=== PATIENT | male | born 1970 | race Two or more races ===

== ENCOUNTER 2021-12-21 17:24 | Emergency (ER) | payer BC, SELFPAY ==
--- NOTE | ~2021-12-21 | XR_ITS ---
EXAMINATION: XR chest 2V CLINICAL INFORMATION: Reason for Exam Cough, fever COMPARISON: None TECHNIQUE: 2 views of the chest XR/XR chest 2V FINDINGS/IMPRESSION: Retrocardiac opacity best appreciated on the lateral view no definite clear PA correlate, which may reflect bronchopneumonia. Recommend follow-up PA and lateral radiographs to ensure resolution. No pneumothorax. No pleural effusion. Normal cardiomediastinal silhouette.
--- NOTE | ~2021-12-21 | CT_ITS ---
EXAMINATION: CT ANGIOGRAM OF THE CHEST WITH AND WITHOUT CONTRAST (CT PULMONARY ANGIOGRAM FOR PE) CLINICAL INFORMATION: Reason for Exam sob, perc +,r/o pe and pna COMPARISON: None TECHNIQUE: Prior to contrast administration, noncontrast localization images were obtained. Subsequently, multidetector volumetric imaging was performed from the thoracic inlet to below the diaphragms following the administration of 80 mL Omnipaque 350 intravenous contrast. No contrast reaction reported Sagittal, coronal, and MIP oblique sagittal reformatted images were obtained on the CT workstation, uploaded to PACS, and reviewed. This CT examination was performed using dose optimization techniques as appropriate, variously including the following: *Automated exposure control *Adjustment of mA and/or kV according to patient size (this includes techniques or standardized protocols for targeted exams where dose is matched to indication/reason for exam; i.e. extremities or head) *Use of iterative reconstruction technique Total exam dose-length product 409 mGy-cm FINDINGS: QUALITY OF STUDY/CONTRAST BOLUS: Satisfactory. PULMONARY ARTERIES: No central or segmental pulmonary emboli. THORACIC AORTA: No aneurysm or dissection. LUNG: The lungs are well-expanded and clear of acute pneumonic process. No pulmonary nodule, mass or consolidation seen. PLEURA: No pleural effusion or pneumothorax. MEDIASTINUM: Normal heart size. No pericardial effusion. No hilar or mediastinal lymphadenopathy. No evidence of septal bowing or right heart strain. CHEST WALL/AXILLA: No axillary or internal mammary lymphadenopathy. OSSEOUS STRUCTURES: No acute or suspicious osseous abnormality. UPPER ABDOMEN: Unremarkable. No reflux of contrast into the hepatic veins to suggest elevated right heart pressures. CT/CT angio chest PE protocol IMPRESSION: No evidence of PE. No evidence of aortic dissection or aneurysm. VTE: negative
[2021-12-21 18:01] VITALS: BP 90/43; PULSE 127; RESP 20; TEMP 38.9; O2SAT 95; BMI 48.4
[2021-12-21] MEDS: Ibuprofen 600 MG TABLET PO (18:13)
[2021-12-21 18:22] LABS: MANUAL DIFF FLAG NO
[2021-12-21 18:27] LABS: Basophils Absolute Auto 0.1 X10*3/uL (0.0-0.2); Basophils Percent Auto 0.6 % (0-2); Eosinophils Absolute Auto 0.1 X10*3/uL (0.0-0.4); Eosinophils Percent Auto 0.9 % (0-4); Hematocrit 42.2 % (42.0-52.0); Hemoglobin 13.9 g/dl (14.0-18.0); Imm Gran Abs Auto 0.02 X10*3/uL (0.00-0.03); Imm Gran Pct Auto 0.3 % (0.0-0.4); Lymphocytes Absolute Auto 0.4 X10*3/uL (1.2-4.9); Mean Corpuscular HGB Conc 32.9 g/dl (31.0-36.0); Mean Corpuscular Volume 82.1 fL (80.0-98.0); Mean Platelet Volume 10.3 fL (9.4-12.4); Monocytes Absolute Auto 0.7 X10*3/uL (0.1-1.2); Monocytes Percent Auto 8.4 % (2-11); Neutrophils Absolute Auto 6.6 x10*3/uL (2.0-8.3); Neutrophils Percent Auto 84.8 % (45-73); Platelet Count 204 X10*3/uL (160-400); Red Blood Count 5.14 X10*6/uL (4.60-5.80); Red Cell Distribution Width 15.2 % (11.0-16.0); White Blood Count 7.8 X10*3/uL (4.8-10.8)
[2021-12-21 18:40] LABS: Anion Gap 14 (12-20); Blood Urea Nitrogen 18 mg/dL (9-16); Carbon Dioxide 28 mmol/L (22-29); Chloride 99 mmol/L (96-108); Creatinine Clr Calc Pharmacy 72.1; Estimated Glomerular Filt Rate 55; Glucose Random 110 mg/dL (60-115); Lactic Acid 2.3 mmol/L (0.5-2.0); Potassium 3.9 mmol/L (3.3-5.1); Sodium 137 mmol/L (135-145)
[2021-12-21 18:41] LABS: COVID-19 Test Negative (Negative); IDNOW Serial# 16C4AD1C
[2021-12-21 18:42] LABS: Influenza A Positive (Negative); Influenza B2 Negative (Negative)
[2021-12-21 20:19] LABS: Reflex Lactate? Lactic Acid Added
[2021-12-21] MEDS: cefTRIAXone sodium 1 GM in 0.9 % Sodium Chloride 50 ML IV (20:27)
--- NOTE | 2021-12-21 20:45 | PC.NURSE ---
THIS US SET UP TIMER FOR [id number]
[2021-12-21 20:47] VITALS: BP 116/78; PULSE 79; RESP 20; O2SAT 96
[2021-12-21 20:55] VITALS: TEMP 36.7
[2021-12-21 20:57] LABS: ~Lactic Acid-LAB USE ONLY 0.7 mmol/L (0.5-2.0)
[2021-12-21] MEDS: iohexoL 350 MG/ML 100 ML INFUS..BTL IV (21:14)
[2021-12-21 21:22] VITALS: BP 108/73; PULSE 77; RESP 18; TEMP 36.7; O2SAT 98
[2021-12-21 21:34] VITALS: BP 122/71; PULSE 55; RESP 14; O2SAT 96
[2021-12-21 22:22] VITALS: BP 122/72; PULSE 78; RESP 17; TEMP 36.4; O2SAT 100
--- NOTE | 2021-12-21 22:22 | ED.GENADULT ---
HPI - General Adult General Chief complaint: Upper Respiratory Symptoms Stated complaint: bodyaches,fever Time Seen by Provider: 12/21/21 19:32 Source: patient Mode of arrival: ambulatory Limitations: no limitations History of Present Illness HPI narrative: This is a 51-year-old male pmhx htn presenting to the emergency department with complaints of fever, cough, body aches all of which started last night after work suddenly and have been progressively worsening. He tells me that he has been feeling weak, warm and his joints are hurting. He has had subjective fevers and chills. He also reports some shortness of breath with exertion. And shortness of breath when he is coughing. He denies any sick contacts. He has his COVID vaccination x3. However he is not vaccinated against the flu. He denies chest pain, headache, dizziness, vision changes, nausea, vomiting, abdominal pain. Onset (ago): day(s) (2) Severity: moderate Pain Consistency: constant Relieving factors: none Exacerbating factors: none Associated symptoms: denies other symptoms Treatments prior to arrival: none Related Data Previous Rx's Medication Instructions Recorded oseltamivir 75 mg capsule (Tamiflu) 75 mg PO BID 5 Days #10 cap 12/21/21 Allergies Allergy/AdvReac Type Severity Reaction Status Date / Time No Known Allergies Allergy Verified 12/21/21 18:00 Review of Systems Review of Systems: Constitutional : No Weight loss, + Fever, + Chills, + Fatigue, + Malaise ENT/Mouth : No sore throat, No Rhinorrhea Eyes: No Eye Pain, No Swelling, No Redness Cardiovascular : No Chest Pain, No SOB, + Dyspnea on Exertion, No Orthopnea, No Edema, No Palpitations Respiratory : + Cough, + Sputum, No Wheezing Gastrointestinal : No Nausea, No Vomiting, No Diarrhea, No Constipation, No abdominal Pain, No Hematochezia, No Melena Genitourinary : No Dysuria, No Urinary Frequency, No Hematuria, Musculoskeletal : No joint pain, No Myalgias, No Joint Swelling Skin : No Skin Lesions, No rash Neuro : No Weakness, No Numbness, No Dizziness, No Headache Psych : No Anxiety/Panic, No Depression All other systems reviewed and are negative Yes all other systems are reviewed and are negative PMFSH Past Medical History Attestation statement: The following information was validated with the patient. Source: old records reviewed and nursing notes reviewed Medical History (Updated 12/21/21 @ 22:30 by DEDRICK Fam) HTN (hypertension) Sleep apnea Social History Social History Advance Directives: No Advance Directives Information Provided: No Physical Exam ED Vital Signs: Vital Signs - 24 hr 12/21/21 18:01 12/21/21 20:47 12/21/21 20:55 Temperature 102.1 F H 98.0 F Pulse Rate 127 H 79 Respiratory Rate 20 20 Blood Pressure 90/43 L 116/78 Pulse Oximetry 95 96 12/21/21 21:22 12/21/21 21:34 Temperature 98.1 F Pulse Rate 77 55 Respiratory Rate 18 14 Blood Pressure 108/73 122/71 Pulse Oximetry 98 96 BMI result Body Mass Index 48.4 Vital signs significant for hypotension, fever likely secondary to viral infection. Appearance: Alert.? Oriented X3.? No acute distress.? Head: Normocephalic, atraumatic, no step-offs or deformities Eyes: Pupils equal, round and reactive to light.? ENT: Pharynx normal.? Neck: Normal inspection.? Neck supple.? CVS: Normal heart rate and rhythm.? Pulses normal.? Respiratory: No respiratory distress.? Breath sounds normal.? Abdomen: Soft and nontender.? Skin: Skin warm and dry.? Normal skin color.? Normal skin turgor.? Extremities: No lower extremity edema.? No calf ttp, negative Kevin bilaterally 5/5 strength to bilateral upper and lower extremities Back: No midline tenderness, no C-spine tenderness, full range of motion, no CVA tenderness bilaterally Neuro: Oriented X 3.? No motor deficit.? No sensory deficit. CN 2-12 intact Course Reevaluation(s) Reevaluation #1: CBC within normal limits. No acute electrolyte abnormalities requiring intervention. Lactic acid initially 2.3 likely secondary to dehydration, repeat lactic acid 0.7. Total creatinine kinase 285, not consistent with rhabdo. Patient is noted to be positive for influenza type A, consistent with patient's symptoms Chest x-ray shows and retrocardiac opacity best appreciated on the lateral view. Which could reflect bronchopneumonia. There is no pneumothorax, no pleural effusion. To better clarify this and due to patient shortness of breath a CTA was done to rule out pneumonia and pulmonary embolism. CT with no acute findings. CTA with no evidence of dissection or aneurysm. VTE negative. No evidence of PE. No evidence of pneumonia. At this time patient will be discharged home with Tamiflu. Gave patient worrisome signs and symptoms and told him to return if any of these arise. Outlined he is on his discharge. Comfortable discharge home. Upon discharge patient appears well appears to be in no acute distress. Vital signs are stable. Improved blood pressure. He denies shortness of breath and chest pain upon discharge. Patient tells me he never had chest pain. Comfortable discharge Time: 22:28 Medical Decision Making MDM Narrative Medical decision making narrative: 2003 51 yo m presents w/ flu like sx X2 days. Physical examination benign. Patient was noted to be hypotensive and febrile likely secondary to a viral infection. Due to patient's presentation, vitals and history I called a sepsis alert upon his arrival and initiated fluids. And antibiotics. Plan at this time blood cultures, lactic, chest x-ray, labs, influenza and COVID Medical Records Medical records reviewed: Yes I reviewed the patient's medical records. Lab Data Lab results reviewed: Yes I reviewed the patient's lab results. Result diagrams: 12/21/21 18:15 12/21/21 18:15 Labs: Lab Results 12/21/21 12/21/21 12/21/21 Range/Units 18:15 18:15 18:15 WBC 7.8 (4.8-10.8) X10*3/uL RBC 5.14 (4.60-5.80) X10*6/uL Hgb 13.9 L (14.0-18.0) g/dl Hct 42.2 (42.0-52.0) % MCV 82.1 (80.0-98.0) fL MCH 27.0 (27.0-33.0) pg MCHC 32.9 (31.0-36.0) g/dl RDW 15.2 (11.0-16.0) % Plt Count 204 (160-400) X10*3/uL MPV 10.3 (9.4-12.4) fL Immature Gran % (Auto) 0.3 (0.0-0.4) % Neut % (Auto) 84.8 H (45-73) % Lymph % (Auto) 5.0 L (20-40) % O'Brien % (Auto) 8.4 (2-11) % Eos % (Auto) 0.9 (0-4) % Baso % (Auto) 0.6 (0-2) % Lymph # (Auto) 0.4 L (1.2-4.9) X10*3/uL O'Brien # (Auto) 0.7 (0.1-1.2) X10*3/uL Eos # (Auto) 0.1 (0.0-0.4) X10*3/uL Baso # (Auto) 0.1 (0.0-0.2) X10*3/uL Abs Immat Gran (auto) 0.02 (0.00-0.03) X10*3/uL Absolute Neuts (auto) 6.6 (2.0-8.3) x10*3/uL Absolute Nucleated RBC 0.000 (0.0-0.012) X10*3/uL Nucleated RBC % (auto) 0.0 (0.0-0.2) /100WBC Sodium (135-145) mmol/L Potassium (3.3-5.1) mmol/L Chloride (96-108) mmol/L Carbon Dioxide (22-29) mmol/L Anion Gap (12-20) BUN (9-16) mg/dL Creatinine (0.5-1.4) mg/dL Estim Creat Clear Calc Estimated GFR Random Glucose (60-115) mg/dL Lactic Acid (0.5-2.0) mmol/L Lactic Acid F/U @ 2Hr (0.5-2.0) mmol/L Calcium (8.4-10.2) mg/dL Total Creatine Kinase (38-174) U/L COVID-19 (LIZ) Negative (Negative) COVID-19 Clin Com See Note Influenza Type A (VIVIAN) Positive A (Negative) Influenza Type B (VIVIAN) Negative (Negative) Influenza A & B Note See Note 12/21/21 12/21/21 12/21/21 Range/Units 18:15 18:15 20:43 WBC (4.8-10.8) X10*3/uL RBC (4.60-5.80) X10*6/uL Hgb (14.0-18.0) g/dl Hct (42.0-52.0) % MCV (80.0-98.0) fL MCH (27.0-33.0) pg MCHC (31.0-36.0) g/dl RDW (11.0-16.0) % Plt Count (160-400) X10*3/uL MPV (9.4-12.4) fL Immature Gran % (Auto) (0.0-0.4) % Neut % (Auto) (45-73) % Lymph % (Auto) (20-40) % O'Brien % (Auto) (2-11) % Eos % (Auto) (0-4) % Baso % (Auto) (0-2) % Lymph # (Auto) (1.2-4.9) X10*3/uL [place]Brien # (Auto) (0.1-1.2) X10*3/uL Eos # (Auto) (0.0-0.4) X10*3/uL Baso # (Auto) (0.0-0.2) X10*3/uL Abs Immat Gran (auto) (0.00-0.03) X10*3/uL Absolute Neuts (auto) (2.0-8.3) x10*3/uL Absolute Nucleated RBC (0.0-0.012) X10*3/uL Nucleated RBC % (auto) (0.0-0.2) /100WBC Sodium 137 (135-145) mmol/L Potassium 3.9 (3.3-5.1) mmol/L Chloride 99 (96-108) mmol/L Carbon Dioxide 28 (22-29) mmol/L Anion Gap 14 (12-20) BUN 18 H (9-16) mg/dL Creatinine 1.37 (0.5-1.4) mg/dL Estim Creat Clear Calc 72.1 Estimated GFR 55 Random Glucose 110 (60-115) mg/dL Lactic Acid 2.3 H* (0.5-2.0) mmol/L Lactic Acid F/U @ 2Hr 0.7 (0.5-2.0) mmol/L Calcium 9.0 (8.4-10.2) mg/dL Total Creatine Kinase 285 H (38-174) U/L COVID-19 (LIZ) (Negative) COVID-19 Clin Com Influenza Type A (VIVIAN) (Negative) Influenza Type B (VIVIAN) (Negative) Influenza A & B Note Critical Care Time Critical Care Time Critical Care Time: No Discharge Plan Discharge Clinical Impression: Influenza Patient Disposition: Home, Self-Care Instructions: Influenza (ED), Flu Shot (Vaccine) for Adults (ED) Additional Instructions: Take your medications as prescribed. If you were prescribed antibiotics today, it is important that you take your medication to their entirety, do not skip any doses, do not finish them early. Follow-up with your primary care provider this week. Return to the emergency department with new or worsening symptoms. Such as fevers, chills, chest pain, shortness of breath, nausea, vomiting, dizziness, headache, vision changes, lethargy, weakness In case of emergency call 911 Your laboratory studies were reassuring. He tested positive for influenza type A. ?CT/CT angio chest PE protocol IMPRESSION: No evidence of PE. ? No evidence of aortic dissection or aneurysm. ? VTE: negative Prescriptions: New oseltamivir [Tamiflu] 75 mg capsule 75 mg PO BID 5 Days Qty: 10 0RF Referrals: Physician,None [Primary Care Provider] - 3 days Stand Alone Forms: Work/School Release
== END 2021-12-21 22:53 | disposition home or self-care (01) ==
PROVIDERS: Physician Assistant; Emergency Provider Emergency Medicine
DX: J11.1 Influenza due to unidentified influenza virus with other respiratory manifestations (principal); R05.9 Cough, unspecified; R50.9 Fever, unspecified; M79.10 Myalgia, unspecified site; Z20.822 Contact with and (suspected) exposure to COVID-19; Z79.899 Other long term (current) drug therapy
CPT/HCPCS: 36415; 71046; 71275; 80048; 82550; 83605; 85025; 87040; 87502; 87635; 96365; 99284; J0696; Q9967

== ENCOUNTER 2022-04-30 12:22 | Outpatient (REF) | payer BC, SELFPAY ==
[2022-04-30 12:44] LABS: Binax Internal Control QC Valid; Binax Now Covid-19 Ag Positive (Negative)
== END 2022-04-30 12:23 | disposition home or self-care (01) ==
LOC: HO.HMGCLDS 12:22
PROVIDERS: Visit Provider Nurse Practitioner Family
DX: Z20.822 Contact with and (suspected) exposure to COVID-19 (principal); J01.90 Acute sinusitis, unspecified
CPT/HCPCS: 87811; C9803

== ENCOUNTER 2023-06-20 14:55 | Emergency (ER) | payer OTHER, SELFPAY ==
--- NOTE | ~2023-06-20 | XR_ITS ---
EXAMINATION: XR SHOULDER LEFT XR CHEST CLINICAL INFORMATION: Pain COMPARISON: Chest CT from 12/21/2021 TECHNIQUE: Chest, 2 views Left shoulder, 3 views FINDINGS: LEFT SHOULDER: Alignment is normal. There appears to be negligible marginal osteophyte formation and mild subarticular sclerosis at the acromioclavicular joint. The glenohumeral joint space is normal. The humeral head is well-positioned over the intact glenoid. There appears to be a small bone island of the medial humeral head. The subacromial space is normal. No evidence of calcium deposition within rotator cuff tendons. CHEST: Lungs are mildly hypoinflated and clear. No consolidation, pleural effusion or pneumothorax. Cardiac silhouette is normal in size and the hilar contours are normal. The pulmonary vascular pattern is normal. The visualized bones are intact. XR/XR shoulder LT min 2V IMPRESSION: * No acute pulmonary disease. * Minimal osteoarthrosis of the left acromioclavicular joint. * No evidence of calcific tendinopathy at the left shoulder.
--- NOTE | ~2023-06-20 | XR_ITS ---
EXAMINATION: XR SHOULDER LEFT XR CHEST CLINICAL INFORMATION: Pain COMPARISON: Chest CT from 12/21/2021 TECHNIQUE: Chest, 2 views Left shoulder, 3 views FINDINGS: LEFT SHOULDER: Alignment is normal. There appears to be negligible marginal osteophyte formation and mild subarticular sclerosis at the acromioclavicular joint. The glenohumeral joint space is normal. The humeral head is well-positioned over the intact glenoid. There appears to be a small bone island of the medial humeral head. The subacromial space is normal. No evidence of calcium deposition within rotator cuff tendons. CHEST: Lungs are mildly hypoinflated and clear. No consolidation, pleural effusion or pneumothorax. Cardiac silhouette is normal in size and the hilar contours are normal. The pulmonary vascular pattern is normal. The visualized bones are intact. XR/XR chest 2V IMPRESSION: * No acute pulmonary disease. * Minimal osteoarthrosis of the left acromioclavicular joint. * No evidence of calcific tendinopathy at the left shoulder.
[2023-06-20 15:41] VITALS: BP 157/94; PULSE 109; RESP 18; TEMP 36.6; O2SAT 96; BMI 46.6
--- NOTE | 2023-06-20 15:42 | ED.GENADULT ---
HPI - General Adult General Chief complaint: Chest Pain Stated complaint: neck/arm/back pain, not sleeping Time Seen by Provider: 06/20/23 19:58 Source: patient, RN notes reviewed, old records reviewed and [employer] [place] Mode of arrival: ambulatory Limitations: language barrier History of Present Illness HPI narrative: 52-year-old male presents for evaluation of left-sided neck, shoulder, chest pain His pain radiates into his left hand and causes a heavy feeling He denies any injury to the head or neck Denies any medical history His symptoms started 3 days ago His symptoms are worse at night, especially when trying to sleep Denies any shortness of breath No fevers, chills Related Data Home Medications Medication Instructions Recorded Confirmed candesartan 32 1 tab PO DAILY 04/30/22 mg-hydrochlorothiazide 25 mg tablet Previous Rx's Medication Instructions Recorded azithromycin 250 mg tablet See Rx Instructions PO .COMPLEX #6 04/30/22 tabs dexamethasone 4 mg tablet 4 mg PO BID #6 tabs 06/20/23 methocarbamol 750 mg tablet 750 mg PO TID PRN muscle spasms 06/20/23 #15 tabs Allergies Allergy/AdvReac Type Severity Reaction Status Date / Time No Known Allergies Allergy Verified 06/20/23 15:46 Review of Systems Constitutional: Constitutional: Denies chills and Denies fever(s) ENT: Reports neck pain and Denies sore throat Cardiovascular: Cardiovascular: Reports chest pain and Denies dyspnea Respiratory: Respiratory: Denies cough and Denies dyspnea Musculoskeletal: Musculoskeletal: Reports back pain, Reports arthralgias, Reports muscle weakness, Reports neck pain, Denies numbness, Reports radiating pain into limb and Denies tingling Integumentary/Breasts: Skin/Breast: Denies rash Neurologic: Denies numbness and Denies tingling PMFSH Past Medical History Medical History HTN (hypertension) Sleep apnea Physical Exam ED Vital Signs: Vital Signs - 24 hr 06/20/23 15:41 Temperature 97.9 F Pulse Rate 109 H Respiratory Rate 18 Blood Pressure 157/94 H Pulse Oximetry 96 Oxygen Delivery Method Room Air BMI result Body Mass Index 46.6 Const General: healthy appearing, comfortable, no acute distress, alert and awake Nutritional Appearance: well nourished Orientation/consciousness: patient oriented x3 HENMT Head: Yes normocephalic and Yes atraumatic Throat: Yes posterior oropharynx normal Eyes Eyelids: Yes eyelids normal Conjunctivae: conjunctivae normal Sclerae: sclerae normal Corneas: corneas normal Pupils: Equal, round and reactive pupils present EOM: EOMs intact bilaterally Neck Neck: Yes full ROM Resp Effort & Inspection: normal respiratory effort, able to speak in complete sentences and not labored Cardio Rate: regular rate Rhythm: regular rhythm Back/Spine/Pelvis Other: Tenderness to the left cervical paraspinous muscle group, left trapezius muscle group. No visual or palpable deformities. Skin General skin exam: no rashes or lesions noted Neuro General: patient oriented x3 Cranial nerves: Yes Equal, round and reactive pupils present and Yes Bilaterally intact EOM present Cognition (Neuro): normal cognition Course Course Course Narrative: RME- 52 year old male presents for evaluation of left chest, shoulder, neck pain for the last 3 days. Also endorses shortness of breath. Plan for cardiac workup. Medical Decision Making Medical Decision Making [facility] Narrative: 52-year-old male presents for evaluation of left neck, shoulder pain that radiates to his back and chest. The patient denies any medical history. He is morbidly obese. Denies any trauma to the area. Plan for cardiac workup. Differential Diagnosis Differential Diagnoses: The differential diagnosis associated with the presentation includes Muscle strain Cervical radiculopathy Arthritis Chest pain ACS less likely Lab Data [facility] Lab Attestation statement: I reviewed the patient's lab results. Patient has a mild leukocytosis to 11.1 K. No anemia, normal platelet count. No electrolyte abnormalities. Normal renal function. troponin less than 2.7 06/20/23 15:53 06/20/23 15:53 Labs: Lab Results 06/20/23 Range/Units 15:53 WBC 11.1 H (4.8-10.8) X10*3/uL RBC 5.49 (4.60-5.80) X10*6/uL Hgb 15.5 (14.0-18.0) g/dl Hct 46.5 (42.0-52.0) % MCV 84.7 (80.0-98.0) fL MCH 28.2 (27.0-33.0) pg MCHC 33.3 (31.0-36.0) g/dl RDW 15.3 (11.0-16.0) % Plt Count 272 D (160-400) X10*3/uL MPV 10.2 (9.4-12.4) fL Immature Gran % (Auto) 0.4 (0.0-0.4) % Neut % (Auto) 67.8 (45-73) % Lymph % (Auto) 20.8 (20-40) % [place]ingo % (Auto) 8.8 (2-11) % Eos % (Auto) 1.7 (0-4) % Baso % (Auto) 0.5 (0-2) % Lymph # (Auto) 2.3 (1.2-4.9) X10*3/uL [place]ingo # (Auto) 1.0 (0.1-1.2) X10*3/uL Eos # (Auto) 0.2 (0.0-0.4) X10*3/uL Baso # (Auto) 0.1 (0.0-0.2) X10*3/uL Abs Immat Gran (auto) 0.04 H (0.00-0.03) X10*3/uL Absolute Neuts (auto) 7.5 (2.0-8.3) x10*3/uL Absolute Nucleated RBC 0.000 (0.0-0.012) X10*3/uL Nucleated RBC % (auto) 0.0 (0.0-0.2) /100WBC PT 12.1 (11.1-13.3) SEC INR 1.0 (0.9-1.1) Sodium 139 (135-145) mmol/L Potassium 4.1 (3.3-5.1) mmol/L Chloride 106 (96-108) mmol/L Carbon Dioxide 22 (22-29) mmol/L Anion Gap 15 (12-20) BUN 23 H (9-16) mg/dL Creatinine 1.04 (0.5-1.4) mg/dL Estim Creat Clear Calc 105.3 Estimated GFR > 60 Random Glucose 74 (60-115) mg/dL Calcium 9.3 (8.4-10.2) mg/dL Total Bilirubin 0.2 (0.0-1.0) mg/dL AST 15 (5-37) U/L ALT 20 (0-40) U/L Alkaline Phosphatase 84 (39-117) U/L Troponin I High Sens < 2.7 (<3.5-35.0) ng/L Total Protein 7.7 (6.5-8.0) g/dL Albumin 4.1 (3.5-5.0) g/dL Lipase 26 (8-78) U/L Independent Interpretation I performed an independent interpretation of an: Plain X-Ray (Clear chest x-ray) Interpretation: No fracture of the left shoulder Radiology Impression Discussion of test interpretation with radiology: I have reviewed the radiologist's reading. (Mild arthritis in the AC joint on left. No acute cardiopulmonary disease) Discharge Plan Discharge Clinical Impression: Cervical radiculopathy, Arthritis of shoulder region, left Patient Disposition: Home, Self-Care Additional Instructions: Your workup in the emergency department today was reassuring This includes her blood work, EKG, x-rays You do have some arthritis of your left shoulder You likely have a pinched nerve in your neck causing the pain going into your left hand Use ibuprofen/Tylenol for pain You may use methocarbamol for muscle spasms This may make you sleepy, do not drink alcohol or drive after taking it Take dexamethasone twice daily for the next 3 days Prescriptions: New methocarbamol 750 mg tablet 750 mg PO TID PRN (Reason: muscle spasms) Qty: 15 0RF dexamethasone 4 mg tablet 4 mg PO BID Qty: 6 0RF No Action candesartan-hydrochlorothiazid 32-25 mg tablet 1 tab PO DAILY azithromycin 250 mg tablet See Rx Instructions PO .COMPLEX Qty: 6 0RF Rx Instructions: For 250 mg dose pack: take 500 mg today (day 1), then 250 mg for 4 days (days 2-5) PO
--- NOTE | 2023-06-20 15:43 | ECG_ITS ---
Test Reason : CHEST PAIN Blood Pressure : / mmHG Vent. Rate : 095 BPM Atrial Rate : 095 BPM P-R Int : 130 ms QRS Dur : 078 ms QT Int : 334 ms P-R-T Axes : 020 028 018 degrees QTc Int : 419 ms Normal sinus rhythm Nonspecific T wave abnormality Inferior leads Abnormal ECG No previous ECGs available Referred By: Sean Lizarraga Electronically Signed By:DEMETRIO GIFFORD MD
[2023-06-20 16:01] LABS: MANUAL DIFF FLAG NO
[2023-06-20 16:02] LABS: Basophils Absolute Auto 0.1 X10*3/uL (0.0-0.2); Basophils Percent Auto 0.5 % (0-2); Eosinophils Absolute Auto 0.2 X10*3/uL (0.0-0.4); Eosinophils Percent Auto 1.7 % (0-4); Hematocrit 46.5 % (42.0-52.0); Hemoglobin 15.5 g/dl (14.0-18.0); Imm Gran Abs Auto 0.04 X10*3/uL (0.00-0.03); Imm Gran Pct Auto 0.4 % (0.0-0.4); Lymphocytes Absolute Auto 2.3 X10*3/uL (1.2-4.9); Lymphocytes Percent Auto 20.8 % (20-40); Mean Corpuscular HGB Conc 33.3 g/dl (31.0-36.0); Mean Corpuscular Hemoglobin 28.2 pg (27.0-33.0); Mean Corpuscular Volume 84.7 fL (80.0-98.0); Mean Platelet Volume 10.2 fL (9.4-12.4); Monocytes Percent Auto 8.8 % (2-11); Neutrophils Absolute Auto 7.5 x10*3/uL (2.0-8.3); Neutrophils Percent Auto 67.8 % (45-73); Platelet Count 272 X10*3/uL (160-400); Red Blood Count 5.49 X10*6/uL (4.60-5.80); Red Cell Distribution Width 15.3 % (11.0-16.0); White Blood Count 11.1 X10*3/uL (4.8-10.8)
[2023-06-20 16:10] LABS: Prothrombin Time 12.1 SEC (11.1-13.3)
[2023-06-20 16:23] LABS: Alanine Aminotransferase 20 U/L (0-40); Albumin Level 4.1 g/dL (3.5-5.0); Alkaline Phosphatase 84 U/L (39-117); Anion Gap 15 (12-20); Aspartate Amino Transferase 15 U/L (5-37); Bilirubin Total 0.2 mg/dL (0.0-1.0); Blood Urea Nitrogen 23 mg/dL (9-16); Calcium 9.3 mg/dL (8.4-10.2); Carbon Dioxide 22 mmol/L (22-29); Chloride 106 mmol/L (96-108); Creatinine Clr Calc Pharmacy 105.3; Estimated Glomerular Filt Rate > 60; Glucose Random 74 mg/dL (60-115); Lipase 26 U/L (8-78); Potassium 4.1 mmol/L (3.3-5.1); Sodium 139 mmol/L (135-145); Total Protein 7.7 g/dL (6.5-8.0)
[2023-06-20 16:33] LABS: Troponin-I High Sensitivity < 2.7 ng/L (<3.5-35.0)
[2023-06-20] MEDS: Ketorolac Tromethamine 30 MG/ML VIAL IM (20:01)
--- NOTE | 2023-06-20 20:07 | PC.NURSE ---
pt re-assess by provider, medicated per Mar.
== END 2023-06-20 20:38 | disposition home or self-care (01) ==
PROVIDERS: Physician Assistant; Emergency Provider Emergency Medicine
DX: M54.12 Radiculopathy, cervical region (principal); M19.012 Primary osteoarthritis, left shoulder; R06.02 Shortness of breath
CPT/HCPCS: 36415; 71046; 73030; 80053; 83690; 84484; 85025; 85610; 93005; 96372; 99283; 99284; J1885